=== PATIENT | male | born 1945 | race Caucasian/White ===

== ENCOUNTER 2018-08-17 19:48 | Emergency (ER) | payer OTHER ==
[~2018-08-17] VITALS: Ht 160 cm; Wt 57.2 kg
[2018-08-17 19:50] VITALS: Ht 160 cm; Wt 57.2 kg
[2018-08-17 22:57] VITALS: BP 119/66
== END 2018-08-17 22:58 | disposition home or self-care (01) ==
LOC: ED 19:48
DX: J20.9 Acute bronchitis, unspecified (principal)
CPT/HCPCS: J0696; J7512